=== PATIENT | male | born 1990 | race Caucasian/White ===

== ENCOUNTER 2019-01-27 20:21 | Emergency (ER) | payer OTHER ==
[~2019-01-27] VITALS: Ht 170.2 cm; Wt 75.7 kg
[2019-01-27 20:32] VITALS: Ht 170.2 cm; Wt 75.7 kg
[2019-01-27 22:26] LABS: BASOPHIL % 0 % (0-2); PLATELET COUNT 295 x10^3mcL (130-400); RED CELL DISTRIBUTION WIDTH 13.1 % (11.5-14.5)
[2019-01-27 22:44] LABS: CALCIUM 9.3 mg/dL (8.5-10.1); CARBON DIOXIDE 26.9 mmol/L (21-32); CHLORIDE SERUM 99 mmol/L (98-107); CREATININE SERUM 1.1 mg/dL (0.7-1.3); GFR1 > 60 mL/min; GLUCOSE SERUM 129 mg/dL (74-106); POTASSIUM SERUM 4.1 mmol/L (3.5-5.1); SODIUM SERUM 136 mmol/L (136-145)
[2019-01-27 22:50] LABS: ALBUMIN 4.9 g/dL (3.4-5.0); ALKALINE PHOSPHATASE 74 U/L (46-116); ALT/SGPT 38 U/L (16-63); AST/SGOT 11 U/L (15-37); BILIRUBIN TOTAL 0.45 mg/dL (0.20-1.00); C REACTIVE PROTEIN 1.4 mg/dL (<=0.9)
[2019-01-27 23:42] VITALS: BP 138/70
[2019-01-27 23:59] LABS: microscopic required? NO
[2019-01-28 00:20] LABS: UA SPECIFIC GRAVITY >=1.030 (1.005-1.035); urine erythrocyte NEGATIVE (NEGATIVE)
== END 2019-01-27 23:42 | disposition home or self-care (01) ==
LOC: ED 20:21
PROVIDERS: Student in an Organized Health Care Education/Training Program
DX: L03.011 Cellulitis of right finger (principal)
CPT/HCPCS: 36415

== ENCOUNTER 2019-05-01 10:31 | Emergency (ER) | payer OTHER ==
[~2019-05-01] VITALS: Ht 167.6 cm; Wt 79.8 kg
[2019-05-01 10:37] VITALS: Ht 167.6 cm; Wt 79.8 kg
[2019-05-01 13:07] VITALS: BP 142/89
== END 2019-05-01 13:07 | disposition home or self-care (01) ==
LOC: ED 10:31
DX: S62.632B Displaced fracture of distal phalanx of right middle finger, initial encounter for open fracture (principal); S62.610A Displaced fracture of proximal phalanx of right index finger, initial encounter for closed fracture; W20.8XXA Other cause of strike by thrown, projected or falling object, initial encounter; Y93.89 Activity, other specified; Y92.89 Other specified places as the place of occurrence of the external cause; Y99.0 Civilian activity done for income or pay
CPT/HCPCS: J2001

== ENCOUNTER 2019-05-03 10:44 | Emergency (ER) | payer OTHER ==
[~2019-05-03] VITALS: Ht 165.1 cm; Wt 78.9 kg
[2019-05-03 11:01] VITALS: BP 128/76; Ht 165.1 cm; Wt 78.9 kg
== END 2019-05-03 12:22 | disposition home or self-care (01) ==
LOC: ED 10:44
DX: Z48.01 Encounter for change or removal of surgical wound dressing (principal); M79.644 Pain in right finger(s)

== ENCOUNTER 2019-05-15 14:44 | Emergency (ER) | payer OTHER ==
[~2019-05-15] VITALS: Ht 165.1 cm; Wt 79.4 kg
[2019-05-15 15:21] VITALS: Ht 165.1 cm; Wt 79.4 kg
[2019-05-15 16:23] VITALS: BP 122/77
== END 2019-05-15 16:23 | disposition home or self-care (01) ==
LOC: ED 14:44
DX: S61.212D Laceration without foreign body of right middle finger without damage to nail, subsequent encounter (principal); X58.XXXD Exposure to other specified factors, subsequent encounter